=== PATIENT | female | born 1930 | race Caucasian/White ===

== ENCOUNTER 2016-11-24 14:08 | Emergency (ER) | payer MEDICARE, OTHER | END 2016-11-24 17:35 | disposition home or self-care (01) | LOC: ER 14:08 | DX: J06.9 Acute upper respiratory infection, unspecified (principal); E11.9 Type 2 diabetes mellitus without complications; I10 Essential (primary) hypertension; I25.2 Old myocardial infarction; Z95.5 Presence of coronary angioplasty implant and graft; Z90.710 Acquired absence of both cervix and uterus; Z90.49 Acquired absence of other specified parts of digestive tract; Z79.84 Long term (current) use of oral hypoglycemic drugs; Z79.899 Other long term (current) drug therapy; Z88.0 Allergy status to penicillin; Z88.5 Allergy status to narcotic agent; Z88.7 Allergy status to serum and vaccine; Z88.8 Allergy status to other drugs, medicaments and biological substances; Z91.041 Radiographic dye allergy status | CPT/HCPCS: 36415 ==

== ENCOUNTER 2016-12-20 10:40 | Emergency (ER) | payer MEDICARE, OTHER | END 2016-12-20 16:12 | disposition home or self-care (01) | LOC: ER 10:40 | DX: R06.00 Dyspnea, unspecified (principal); I10 Essential (primary) hypertension; E11.9 Type 2 diabetes mellitus without complications; Z90.49 Acquired absence of other specified parts of digestive tract; Z90.710 Acquired absence of both cervix and uterus; Z95.5 Presence of coronary angioplasty implant and graft; Z79.84 Long term (current) use of oral hypoglycemic drugs; Z79.899 Other long term (current) drug therapy; Z88.5 Allergy status to narcotic agent; Z91.041 Radiographic dye allergy status | CPT/HCPCS: 36415; 96374; 96375; 96376; J0360; J1940 ==

== ENCOUNTER 2017-02-18 16:51 | Observation (INO) | payer MEDICARE ==
[~2017-02-18] VITALS: Ht 160 cm; Wt 74.4 kg
== END 2017-02-19 14:30 | disposition home health service (06) ==
LOC: ER 16:51 → MED 21:19
PROVIDERS: ADMIT Internal Medicine
DX: R06.00 Dyspnea, unspecified (principal); D69.6 Thrombocytopenia, unspecified; I25.10 Atherosclerotic heart disease of native coronary artery without angina pectoris; F41.9 Anxiety disorder, unspecified; E11.9 Type 2 diabetes mellitus without complications; E78.5 Hyperlipidemia, unspecified; Z79.84 Long term (current) use of oral hypoglycemic drugs; Z79.899 Other long term (current) drug therapy; Z88.0 Allergy status to penicillin; Z88.2 Allergy status to sulfonamides; Z88.5 Allergy status to narcotic agent; Z88.7 Allergy status to serum and vaccine; Z88.8 Allergy status to other drugs, medicaments and biological substances; Z91.041 Radiographic dye allergy status
CPT/HCPCS: 36415; G0378

== ENCOUNTER 2017-02-18 16:51 | Emergency (ER) | payer MEDICARE, OTHER | END 2017-02-18 21:18 | disposition critical access hospital (66) | LOC: ER 16:51 | DX: J44.1 Chronic obstructive pulmonary disease with (acute) exacerbation (principal); D69.6 Thrombocytopenia, unspecified; R53.1 Weakness; I25.2 Old myocardial infarction; I10 Essential (primary) hypertension; Z79.899 Other long term (current) drug therapy; Z88.0 Allergy status to penicillin; Z88.2 Allergy status to sulfonamides; Z88.5 Allergy status to narcotic agent; Z88.7 Allergy status to serum and vaccine; Z91.041 Radiographic dye allergy status; Z88.8 Allergy status to other drugs, medicaments and biological substances; Z90.710 Acquired absence of both cervix and uterus; Z90.49 Acquired absence of other specified parts of digestive tract; Z87.891 Personal history of nicotine dependence | CPT/HCPCS: 96374 ==